=== PATIENT | male | born 1930 | race Caucasian/White ===

== ENCOUNTER 2016-10-08 10:46 | Emergency (ER) | payer OTHER, MEDICARE ==
--- NOTE | 2016-10-08 10:49 | ER Document Report ---
ED Medical Screen (RME) - General Stated Complaint: DIZZY Time seen by provider: 10:48 Mode of Arrival: Wheelchair Information source: Patient Notes: 86 yo male with dizziness when stands for 1 month after started on flomax for prostatism. [facility]. C/o headache. Hard of hearing. 87 systolic in triage. TRAVEL OUTSIDE OF THE [place] IN LAST 30 DAYS: No - Related Data Allergies/Adverse Reactions: promethazine [From Phenergan] Allergy (Verified 10/08/16 10:50) tramadol [Tramadol] Allergy (Verified 10/08/16 10:50) Past Medical History - Past Medical History Cardiac Medical History: Reports: Hx Hypercholesterolemia, Hx Hypertension - MEDICATED Denies: Hx Heart Attack Pulmonary Medical History: Reports: Hx COPD Denies: Hx Asthma Neurological Medical History: Denies: Hx Cerebrovascular Accident, Hx Seizures Endocrine Medical History: Reports: Hx Diabetes Mellitus Type 2 GI Medical History: Denies: Hx Hepatitis, Hx Hiatal Hernia, Hx Ulcer Musculoskeltal Medical History: Reports Hx Arthritis Psychiatric Medical History: Reports: Hx Anxiety, Hx Depression - anxiety Infectious Medical History: Denies: Hx Hepatitis Past Surgical History: Reports: Hx Orthopedic Surgery - back x 5. Denies: Hx Open Heart Surgery, Hx Pacemaker - Immunizations Hx Diphtheria, Pertussis, Tetanus Vaccination: No
[2016-10-08] MEDS ORDERED: NORMAL SALINE 1000 ML 1,000 ML IV ONE (11:12)
[2016-10-08 11:48] LABS: ABSOLUTE EOSINOPHILS # (AUTO) 0.1 10^3/uL (0.0-0.6); ABSOLUTE LYMPHOCYTES (AUTO) 2.3 10^3/uL (0.5-4.7); ABSOLUTE MONOCYTES (AUTO) 0.5 10^3/uL (0.1-1.4); BASOPHILS % (AUTO) 0.5 % (0-2); EOSINOPHILS % (AUTO) 0.8 % (0-6); HEMATOCRIT 39.9 % (37.9-51.0); HEMOGLOBIN 13.3 g/dL (13.5-17.0); LYMPHOCYTES % (AUTO) 25.8 % (13-45); MEAN CORPUSCULAR HEMOGLOBIN 28.1 pg (27.0-33.4); MEAN CORPUSCULAR HGB CONC 33.5 g/dL (32.0-36.0); MEAN CORPUSCULAR VOLUME 84 fl (80-97); RED BLOOD COUNT 4.75 10^6/uL (4.35-5.55); RED CELL DISTRIBUTION WIDTH 13.8 % (11.5-14.0); SEGMENTED NEUTROPHILS % (AUTO) 66.9 % (42-78)
--- NOTE | 2016-10-08 11:59 | EKG REPORT ---
SEVERITY:- ABNORMAL ECG - SINUS RHYTHM LEFT ANTERIOR FASCICULAR BLOCK : Confirmed by: Abiel Mauro 08-Oct-2016 11:58:34
--- NOTE | 2016-10-08 12:06 | ER Document Report ---
ED General - General Chief Complaint: Blood Pressure Problem Stated Complaint: DIZZY Mode of Arrival: Wheelchair TRAVEL OUTSIDE OF THE [place] IN LAST 30 DAYS: No - HPI Patient complains to provider of: hypotension dizziness Notes: Patient was referred to the ER from his local [place] clinic for hypotension and dizziness. Patient states he has been chronically dizzy for over the last year also has chronic neck pain chronic back pain. Patient states was seen at the [place] today for checkup with a there is while signs found to have a blood pressure with systolics in the 80s therefore referred to the ER for further evaluation. States recently started on Flomax within the last month family states dizziness seemed to progress or worsen after administration of this medication. Patient is also on multiple antihypertensives that he did take this morning. Patient is unable to describe his dizziness other than stating that whenever he moves around is "dizzy" Patient denies head pain chest pain abdominal pain nausea vomiting fevers chills - Related Data Allergies/Adverse Reactions: promethazine [From Phenergan] Allergy (Verified 10/08/16 10:50) tramadol [Tramadol] Allergy (Verified 10/08/16 10:50) Home Medications: Current Home Medications Atorvastatin Calcium 10 mg PO QHS 10/08/16 [History] Tamsulosin HCl 0.4 mg PO DAILY 10/08/16 [History] Past Medical History - General Information source: Patient - Social History Smoking Status: Current Every Day Smoker Chew tobacco use (# tins/day): No Frequency of alcohol use: None Drug Abuse: None Family History: None, Reviewed & Not Pertinent Patient has suicidal ideation: No Patient has homicidal ideation: No - Past Medical History Cardiac Medical History: Reports: Hx Hypercholesterolemia, Hx Hypertension - MEDICATED Denies: Hx Heart Attack Pulmonary Medical History: Reports: Hx COPD Denies: Hx Asthma Neurological Medical History: Denies: Hx Cerebrovascular Accident, Hx Seizures Endocrine Medical History: Reports: Hx Diabetes Mellitus Type 2 GI Medical History: Denies: Hx Hepatitis, Hx Hiatal Hernia, Hx Ulcer Musculoskeltal Medical History: Reports Hx Arthritis Psychiatric Medical History: Reports: Hx Anxiety, Hx Depression - anxiety Infectious Medical History: Denies: Hx Hepatitis Past Surgical History: Reports: Hx Orthopedic Surgery - back x 5. Denies: Hx Open Heart Surgery, Hx Pacemaker - Immunizations Hx Diphtheria, Pertussis, Tetanus Vaccination: No Review of Systems - Review of Systems Constitutional: Other - Hypotension EENT: No symptoms reported Cardiovascular: No symptoms reported Respiratory: No symptoms reported Gastrointestinal: No symptoms reported Genitourinary: No symptoms reported Male Genitourinary: No symptoms reported Musculoskeletal: No symptoms reported Skin: No symptoms reported Hematologic/Lymphatic: No symptoms reported Neurological/Psychological: Other -: Yes All other systems reviewed and negative - Dizziness Physical Exam - Vital signs Vitals: Temp Pulse Resp BP Pulse Ox 97.6 F 76 18 86/48 L 97 10/08/16 10:52 10/08/16 10:52 10/08/16 10:52 10/08/16 10:52 10/08/16 10:52 Interpretation: Hypotensive - General General appearance: Appears well, Alert - HEENT Head: Normocephalic, Atraumatic Eyes: Normal Pupils: PERRL - Respiratory Respiratory status: No respiratory distress Chest status: Nontender Breath sounds: Normal Chest palpation: Normal - Cardiovascular Rhythm: Regular Heart sounds: Normal auscultation Murmur: No - Abdominal Inspection: Normal Distension: No distension Bowel sounds: Normal Tenderness: Nontender Organomegaly: No organomegaly - Back Back: Normal, Nontender - Extremities General upper extremity: Normal inspection, Nontender, Normal color, Normal ROM , Normal temperature General lower extremity: Normal inspection, Nontender, Normal color, Normal ROM , Normal temperature, Normal weight bearing. No: Ramona's sign - Neurological Neuro grossly intact: Yes Cognition: Normal Orientation: AAOx4 [place] Coma Scale Eye Opening: Spontaneous [place] Coma Scale Verbal: Oriented [place] Coma Scale Motor: Obeys Commands [place] Coma Scale Total: 15 Speech: Normal Motor strength normal: LUE, RUE, LLE, RLE Sensory: Normal - Psychological Associated symptoms: Normal affect, Normal mood - Skin Skin Temperature: Warm Skin Moisture: Dry Skin Color: Normal Course - Re-evaluation Re-evalutation: 10/08/16 12:06 Orthostatics were positive will begin IV hydration. Will check an EKG and lab work. 10/08/16 19:23 Patient feeling better after IV hydration. Blood pressure has improved. Will likely patient is overmedicated and concern about stopping the patient's Flomax is that he may develop urinary retention and unaware why the patient is on Flomax other than possible BPH. Therefore excerpted patient to hold his amlodipine patient is also on other antihypertensives. Fill this visit best course of action. Patient agrees patient has an appointment [facility] Recommended that his primary care physician adjust his medications. - Vital Signs Vital signs: Temp Pulse Resp BP Pulse Ox 97.9 F 57 L 14 124/62 93 10/08/16 14:15 10/08/16 11:53 10/08/16 14:01 10/08/16 14:01 10/08/16 14:01 - Laboratory Result Diagrams: 10/08/16 11:30 10/08/16 11:30 Laboratory results interpreted by me: 10/08/16 10/08/16 10/08/16 11:30 11:30 13:00 Hgb 13.3 L BUN 26 H Creatinine 1.36 H Est GFR (Non-Af Amer) 50 L Glucose 183 H Calcium 10.3 H Ur Leukocyte Esterase SMALL H Discharge - Discharge Clinical Impression: Dehydration, Dizziness Condition: Good Disposition: HOME, SELF-CARE Instructions: Dizziness ([facility]), Dehydration ([facility]), Hypotension ([facility]) Additional Instructions: You were evaluated today for a low blood pressure and dizziness. Your on multiple medications that can cause the symptoms. After IV fluids your blood pressure has improved. A component dehydration may also contribute to your symptoms. I also think that some of your medications are contributing to your symptoms. I would hold her amlodipine and to your reevaluated tomorrow by your primary care physician. Your labwork today shows no signs of sepsis or critical etiology. Please drink plenty water and fluids to stay hydrated. Hold amlodipine. Please have your physician adjust your medications tomorrow
[2016-10-08 12:08] LABS: ALANINE AMINOTRANSFERASE 24 U/L (21-72); ALBUMIN 4.1 g/dL (3.5-5.0); ALKALINE PHOSPHATASE 86 U/L (38-126); ANION GAP 12 (5-19); ASPARTATE AMINO TRANSFERASE 22 U/L (17-59); BILIRUBIN,TOTAL 0.4 mg/dL (0.2-1.3); BLOOD UREA NITROGEN 26 mg/dL (7-20); CALCIUM 10.3 mg/dL (8.4-10.2); CARBON DIOXIDE 24 mmol/L (22-30); CHLORIDE 104 mmol/L (98-107); CREATININE RESULT 1.36 mg/dL (0.52-1.25); GLUCOSE 183 mg/dL (75-110); LIPASE 47.5 U/L (23-300); MAGNESIUM 2.1 mg/dL (1.6-2.3); POTASSIUM 4.4 mmol/L (3.6-5.0); SODIUM 139.8 mmol/L (137-145); TOTAL PROTEIN 6.8 g/dL (6.3-8.2)
[2016-10-08 13:51] LABS: APPEARANCE,URINE CLEAR; BILIRUBIN,URINE NEGATIVE (NEGATIVE); GLUCOSE, URINE NEGATIVE (NEGATIVE); KETONES,URINE NEGATIVE (NEGATIVE); LEUKOCYTE ESTERASE,URINE SMALL (NEGATIVE); NITRITE,URINE NEGATIVE (NEGATIVE); PROTEIN,URINE NEGATIVE (NEGATIVE); URINE SPECIFIC GRAVITY 1.011; UROBILINOGEN,URINE NEGATIVE mg/dL (<2.0)
[2016-10-08 14:12] VITALS: BP 124/62
== END 2016-10-08 14:26 | disposition home or self-care (01) ==
LOC: ER 10:46
DX: E86.0 Dehydration (principal); R42 Dizziness and giddiness; I95.9 Hypotension, unspecified; G89.29 Other chronic pain; M54.2 Cervicalgia; M54.9 Dorsalgia, unspecified; F17.200 Nicotine dependence, unspecified, uncomplicated; E78.00 Pure hypercholesterolemia, unspecified; I10 Essential (primary) hypertension; E11.9 Type 2 diabetes mellitus without complications
CPT/HCPCS: 93005; 99284; 96360; 36415; 83690; 83735; 85025; 80053; 81001; 84484; 83605; 70450; 93010; J7030